=== PATIENT | male | born 1980 | race Caucasian/White ===

== ENCOUNTER 2018-11-18 19:21 | Emergency (ER) | payer OTHER ==
--- NOTE | 2018-11-18 20:42 | ER ---
Nurse's Notes [facility] Name: Peewee Briscoe Age: 38 yrs Sex: Male : 1980 Arrival Date: 11/18/2018 Time: 19:24 Bed 23 [facility] MD: Diagnosis: Contusion of left knee Presentation: 11/18 19:30 Presenting complaint: Patient states: Left knee pain today after pipe fell on knee. aj Transition of care: patient was not received from another setting of care. Onset of symptoms was November 18, 2018. Risk Assessment: Do you want to hurt yourself or someone else? Patient reports no desire to harm self or others. Initial Sepsis Screen: Does the patient meet any 2 criteria? No. Patient's initial sepsis screen is negative. Does the patient have a suspected source of infection? No. Patient's initial sepsis screen is negative. Care prior to arrival: None. 19:30 Method Of Arrival: Ambulatory aj 19:30 Acuity: MARIUSZ 4 aj Triage Assessment: 19:31 General: Appears in no apparent distress. comfortable, Behavior is calm, cooperative, aj appropriate for age. Pain: Complains of pain in left knee. Neuro: Level of Consciousness is awake, alert, obeys commands, Oriented to person, place, time, situation, Appropriate for age. Respiratory: Airway is patent Respiratory effort is even, unlabored, Respiratory pattern is regular, symmetrical. Derm: Skin is intact, is healthy with good turgor, Skin is pink, warm \T\ dry. normal. Musculoskeletal: Reports pain in left knee. Historical: - Allergies: 19:31 Bactrim; aj 19:31 PENICILLINS; aj - Immunization history:: Adult Immunizations up to date. - Social history:: Smoking status: Patient/guardian denies using tobacco. - Ebola Screening: : Patient negative for fever greater than or equal to 101.5 degrees Fahrenheit, and additional compatible Ebola Virus Disease symptoms Patient denies exposure to infectious person Patient denies travel to an Ebola-affected area in the 21 days before illness onset No symptoms or risks identified at this time. Screenin:52 Abuse screen: Denies threats or abuse. Denies injuries from another. Nutritional rv screening: No deficits noted. Tuberculosis screening: No symptoms or risk factors identified. Fall Risk None identified. Assessment: 20:51 General: Appears in no apparent distress. uncomfortable, Behavior is calm, cooperative. rv Pain: Complains of pain in left knee. Neuro: Level of Consciousness is awake, alert, obeys commands, Oriented to person, place, time, situation. Cardiovascular: Patient's skin is warm and dry. Respiratory: Airway is patent. GI: No signs and/or symptoms were reported involving the gastrointestinal system. : No signs and/or symptoms were reported regarding the genitourinary system. EENT: No signs and/or symptoms were reported regarding the EENT system. Derm: Skin is intact. Musculoskeletal: Swelling absent. Vital Signs: 19:31 BP 130 / 83; Pulse 80; Resp 17; Temp 98.1; Pulse Ox 98% on R/A; Weight 73.94 kg; Height aj 6 ft. 0 in. (182.88 cm); 19:31 Body Mass Index 22.11 (73.94 kg, 182.88 cm) aj ED Course: 19:24 Patient arrived in ED. ag3 19:31 Triage completed. aj 19:31 Arm band placed on left wrist. Patient placed in waiting room, Patient notified of wait aj time. 19:54 XRAY Knee LEFT 3 view In Process Unspecified. EDMS 20:29 Mack Mireles MD is Attending Physician. tw4 20:47 Kole Oconnell RN is Primary Nurse. rv 20:53 Patient has correct armband on for positive identification. Bed in low position. Call rv light in reach. Side rails up X 1. Pulse ox on. NIBP on. 20:53 No provider procedures requiring assistance completed. Patient did not have IV access rv during this emergency room visit. Administered Medications: 20:50 Drug: [place] 5 mg-325 mg 1 tabs Route: PO; rv 20:51 Follow up: Response: Medication administered at discharge. rv Outcome: 20:40 Discharge ordered by . tw4 20:53 Discharged to home ambulatory. rv 20:53 Condition: good 20:53 Discharge instructions given to patient, Instructed on discharge instructions, follow up and referral plans. medication usage, Demonstrated understanding of instructions, follow-up care, medications, Prescriptions given X 1. 21:04 Patient left the ED. rv Signatures: Dispatcher [employer] EDMS Alexandra Riley RN RN aj Wadley, Terrence, MD MD tw4 Kole Oconnell, RN RN rv Shimon, Anabella ag3
--- NOTE | 2018-11-18 20:42 | EDPHYS ---
Physician Documentation [facility] Name: Peewee Briscoe Age: 38 yrs Sex: Male : 1980 Arrival Date: 11/18/2018 Time: 19:24 Bed 23 Private MD: ED Physician Mack Mireles HPI: 11/19 06:05 This 38 yrs old Male presents to ER via Ambulatory with complaints of Knee tw4 Injury. 06:05 The patient presents with an injury, pain, that is acute. The complaints affect the tw4 left knee. Context: The problem was sustained at work, resulted from a direct blow, by industrial equipment, the patient can partially bear weight. 06:06 Onset: The symptoms/episode began/occurred today. Modifying factors: The symptoms are tw4 alleviated by remaining still, the symptoms are aggravated by movement, weight bearing, bending knee. Associated signs and symptoms: The patient has no apparent associated signs or symptoms. Severity of symptoms: At their worst the symptoms were moderate, in the emergency department the symptoms are unchanged. Historical: - Allergies: 11/18 19:31 Bactrim; aj 19:31 PENICILLINS; aj - Immunization history:: Adult Immunizations up to date. - Social history:: Smoking status: Patient/guardian denies using tobacco. - Ebola Screening: : Patient negative for fever greater than or equal to 101.5 degrees Fahrenheit, and additional compatible Ebola Virus Disease symptoms Patient denies exposure to infectious person Patient denies travel to an Ebola-affected area in the 21 days before illness onset No symptoms or risks identified at this time. ROS: 11/19 06:06 Constitutional: Negative for fever, chills, and weight loss, Eyes: Negative for injury, tw4 pain, redness, and discharge, Cardiovascular: Negative for chest pain, palpitations, and edema, Respiratory: Negative for shortness of breath, cough, wheezing, and pleuritic chest pain, Abdomen/GI: Negative for abdominal pain, nausea, vomiting, diarrhea, and constipation. MS/extremity: Positive for pain, swelling, tenderness. Exam: 06:06 Constitutional: This is a well developed, well nourished patient who is awake, alert, tw4 and in no acute distress. Head/Face: Normocephalic, atraumatic. Chest/axilla: Normal chest wall appearance and motion. Nontender with no deformity. No lesions are appreciated. Cardiovascular: Regular rate and rhythm with a normal S1 and S2. No gallops, murmurs, or rubs. Normal PMI, no JVD. No pulse deficits. Respiratory: Lungs have equal breath sounds bilaterally, clear to auscultation and percussion. No rales, rhonchi or wheezes noted. No increased work of breathing, no retractions or nasal flaring. Abdomen/GI: Soft, non-tender, with normal bowel sounds. No distension or tympany. No guarding or rebound. No evidence of tenderness throughout. 06:06 Musculoskeletal/extremity: Extremities: 06:08 Musculoskeletal/extremity: Extremities: noted in the left knee: tw4 Vital Signs: 11/18 19:31 BP 130 / 83; Pulse 80; Resp 17; Temp 98.1; Pulse Ox 98% on R/A; Weight 73.94 kg; Height aj 6 ft. 0 in. (182.88 cm); 19:31 Body Mass Index 22.11 (73.94 kg, 182.88 cm) aj Procedures: 11/19 06:08 Splinting: Splint applied to left knee using regina wrap, applied by myself. Examined by tw4 me, post splint application: neurovascular intact, 2+ distal pulses palpable, brisk capillary refill noted, Patient tolerated well. MDM: 11/18 20:39 Patient medically screened. tw4 11/19 06:08 Differential diagnosis: dislocation, closed fracture, contusion, abrasion, tendonitis. tw4 Data reviewed: vital signs, nurses notes. Test interpretation: by ED physician or midlevel provider: plain radiologic studies. Counseling: I had a detailed discussion with the patient and/or guardian regarding: the historical points, exam findings, and any diagnostic results supporting the discharge/admit diagnosis, radiology results. Special discussion: I discussed with the patient/guardian in detail that at this point there is no indication for admission to the hospital. It is understood, however, that if the symptoms persist or worsen the patient needs to return immediately for re-evaluation. ED course: Xrays negative for acute changes. 11/18 19:32 Order name: XRAY Knee LEFT 3 view aj Administered Medications: 11/18 20:50 Drug: [place] 5 mg-325 mg 1 tabs Route: PO; rv 20:51 Follow up: Response: Medication administered at discharge. rv Disposition: 11/18/18 20:40 Discharged to Home. Impression: Contusion of left knee. - Condition is Stable. - Discharge Instructions: Contusion. - Prescriptions for Ibuprofen 800 mg Oral Tablet - take 1 tablet by ORAL route every 8 hours As needed take with food; 30 tablet. - Medication Reconciliation Form, Thank You Letter, Antibiotic Education, Prescription Opioid Use form. - Follow up: Private Physician; When: Upon discharge from the Emergency Department; Reason: If symptoms return, Recheck today's complaints, Continuance of care. - Problem is new. - Symptoms have improved. Signatures: Dispatcher [employer] Alexandra Cheung RN RN Mack Osborn MD MD tw4 Kole Oconnell RN RN rv Corrections: (The following items were deleted from the chart) 21:04 20:40 11/18/2018 20:40 Discharged to Home. Impression: Contusion of left knee. rv Condition is Stable. Forms are Medication Reconciliation Form, Thank You Letter, Antibiotic Education, Prescription Opioid Use. Follow up: Private Physician; When: Upon discharge from the Emergency Department; Reason: If symptoms return, Recheck today's complaints, Continuance of care. Problem is new. Symptoms have improved. tw4
--- NOTE | 2018-11-18 20:44 | RAD REPORT ---
EXAM DESCRIPTION: RAD - Knee Left 3 View - 11/18/2018 7:53 pm CLINICAL HISTORY: Blunt force trauma to the knee COMPARISON: None. FINDINGS: No fracture, dislocation or periosteal reaction.Small joint effusion is suspected. Benign sclerotic focus seen in the medial tibial plateau. No joint space narrowing. No soft tissue abnormali ty. IMPRESSION: Small joint effusion is suspected but no fracture or acute bone finding. Clinical concerns for internal derangement or occult bony injury could be further assessed with MR im aging.
[2018-11-18] MEDS ORDERED: HYDROCODONE/APAP 5/325 MG TAB ONE (21:06)
== END 2018-11-18 21:04 | disposition home or self-care (01) ==
LOC: ER 19:21
DX: S80.02XA Contusion of left knee, initial encounter (principal); W31.89XA Contact with other specified machinery, initial encounter; Y93.9 Activity, unspecified; Y92.89 Other specified places as the place of occurrence of the external cause; Y99.8 Other external cause status; Z88.0 Allergy status to penicillin; Z88.1 Allergy status to other antibiotic agents
CPT/HCPCS: 99284

== ENCOUNTER 2020-01-18 07:16 | Emergency (ER) | payer OTHER ==
--- NOTE | 2020-01-18 07:34 | ER ---
Nurse's Notes [facility] Name: Peewee Briscoe Age: 39 yrs Sex: Male : 1980 Arrival Date: 01/18/2020 Time: 07:18 Bed 18 Private MD: Diagnosis: Hordeolum externum left lower eyelid Presentation: 01/17 07:29 Chief complaint: Patient states: Left lower eyelid swelling since this morning. jl7 Coronavirus screen: Client denies travel out of the [place] in the last 14 days. At this time, the client does not indicate any symptoms associated with coronavirus-19. Ebola Screen: No symptoms or risks identified at this time. Initial Sepsis Screen: Does the patient meet any 2 criteria? No. Patient's initial sepsis screen is negative. Does the patient have a suspected source of infection? No. Patient's initial sepsis screen is negative. Risk Assessment: Do you want to hurt yourself or someone else? Patient reports no desire to harm self or others. Onset of symptoms was January 18, 2020 at 05:00. Care prior to arrival: None. 07:29 Method Of Arrival: Ambulatory [facility] 07:29 Acuity: MARIUSZ 4 jl7 Triage Assessment: 07:31 General: Appears in no apparent distress. uncomfortable, Behavior is calm, cooperative, jl7 appropriate for age. Pain: Complains of pain in left eye Pain currently is 7 out of 10 on a pain scale. EENT: Eyes are tearing on left eye with exudate noted from left eye Lid(s) w/ stye noted left eye. Neuro: Level of Consciousness is awake, alert, obeys commands, Oriented to person, place, time, situation. Cardiovascular: Patient's skin is warm and dry. Respiratory: Airway is patent Respiratory effort is even, unlabored, Respiratory pattern is regular, symmetrical. Derm: Skin is pink, warm \T\ dry. Historical: - Allergies: 07:31 Bactrim; jl7 07:31 PENICILLINS; jl7 - Home Meds: 07:31 None [Active]; jl7 - PMHx: 07:31 None; jl7 - PSHx: 07:31 None; jl7 - Immunization history:: Adult Immunizations up to date. - Social history:: Smoking status: Patient reports the use of cigarette tobacco products, smokes one pack cigarettes per day. - Family history:: not pertinent. - Hospitalizations: : No recent hospitalization is reported. Screenin:32 Abuse screen: Denies threats or abuse. Denies injuries from another. Nutritional jl7 screening: No deficits noted. Tuberculosis screening: No symptoms or risk factors identified. Fall Risk None identified. Assessment: 07:32 General: See triage assessment. jl7 Vital Signs: 07:29 BP 157 / 69; Pulse 72; Resp 17; Temp 98.4; Pulse Ox 100% ; Weight 72.57 kg; Height 6 jl7 ft. 0 in. (182.88 cm); Pain 7/10; 07:29 Body Mass Index 21.70 (72.57 kg, 182.88 cm) jl7 ED Course: 07:18 Patient arrived in ED. ds1 07:21 Malvin Lan MD is Attending Physician. rn 07:22 Lizzeth Clark RN is Primary Nurse. jl7 07:31 Triage completed. jl7 07:31 Arm band placed on right wrist. jl7 07:32 Patient has correct armband on for positive identification. Bed in low position. Call jl7 light in reach. Side rails up X 1. 07:32 No provider procedures requiring assistance completed. Patient did not have IV access jl7 during this emergency room visit. Administered Medications: No medications were administered Outcome: 07:33 Discharge ordered by . rn 07:42 Discharged to home ambulatory. jl7 07:42 Condition: stable 07:42 Discharge instructions given to patient, Instructed on discharge instructions, follow up and referral plans. medication usage, Demonstrated understanding of instructions, follow-up care, medications, Prescriptions given X 1. 07:42 Patient left the ED. jl7 Signatures: Cailin Henry ds1 Malvin Lan MD MD rn Lizzeth Clark RN RN jl7
--- NOTE | 2020-01-18 07:34 | EDPHYS ---
Physician Documentation [facility] Name: Peewee Briscoe Age: 39 yrs Sex: Male : 1980 Arrival Date: 01/18/2020 Time: 07:18 Bed 18 Private MD: ED Physician Malvin Lan HPI: 01/17 07:30 This 39 yrs old Male presents to ER via Unassigned with complaints of Eye rn Swelling. 07:30 The patient is experiencing pain, The patient sustained None. to the left eye, caused rn by an unknown mechanism. Onset: The symptoms/episode began/occurred yesterday. Duration: the symptoms are continuous. Aggravated by rubbing. Severity of symptoms: At their worst the symptoms were very mild in the emergency department the symptoms are unchanged. The patient has not experienced similar symptoms in the past. Reports left lower eyelid swelling and pain, + watery drainage, no fever, no trauma, no chemical exposure. Does not wear contacts. No vision changes. . Historical: - Allergies: 07:31 Bactrim; jl7 07:31 PENICILLINS; jl7 - Home Meds: 07:31 None [Active]; jl7 - PMHx: 07:31 None; jl7 - PSHx: 07:31 None; jl7 - Immunization history:: Adult Immunizations up to date. - Social history:: Smoking status: Patient reports the use of cigarette tobacco products, smokes one pack cigarettes per day. - Family history:: not pertinent. - Hospitalizations: : No recent hospitalization is reported. ROS: 07:30 Constitutional: Negative for fever, chills, and weight loss, Eyes: + left lower eyelid rn swelling and pain ENT: Negative for injury, pain, and discharge, Neuro: Negative for headache, weakness, numbness, tingling, and seizure. Exam: 07:30 Constitutional: This is a well developed, well nourished patient who is awake, alert, rn and in no acute distress. Head/Face: Normocephalic, atraumatic. Eyes: Pupils equal round and reactive to light, extra-ocular motions intact. Conjunctiva and sclera are non-icteric and not injected. Cornea within normal limits. + left lower inner eyelid margin with mild swelling and tenderness, + comes to a head, mild left infra-orbital swelling without erythema or warmth. Vital Signs: 07:29 BP 157 / 69; Pulse 72; Resp 17; Temp 98.4; Pulse Ox 100% ; Weight 72.57 kg; Height 6 jl7 ft. 0 in. (182.88 cm); Pain 7/10; 07:29 Body Mass Index 21.70 (72.57 kg, 182.88 cm) jl7 MDM: 07:21 Patient medically screened. rn 07:30 Differential diagnosis: hordeolum/stye. Data reviewed: vital signs, nurses notes, and rn as a result, I will discharge patient. Counseling: I had a detailed discussion with the patient and/or guardian regarding: the historical points, exam findings, and any diagnostic results supporting the discharge/admit diagnosis, the need for outpatient follow up, to return to the emergency department if symptoms worsen or persist or if there are any questions or concerns that arise at home. Special discussion: I discussed with the patient/guardian in detail that at this point there is no indication for admission to the hospital. It is understood, however, that if the symptoms persist or worsen the patient needs to return immediately for re-evaluation. ED course: Recommend lid washing/eye washing, abx ointment, warm compresses. Administered Medications: No medications were administered Disposition: 01/18/20 07:33 Discharged to Home. Impression: Hordeolum externum left lower eyelid. - Condition is Stable. - Discharge Instructions: Stye. - Prescriptions for Erythromycin 5 mg/gram (0.5 %) Ophthalmic Ointment - apply 1 centimeter by OPHTHALMIC route 2-3 times daily for 7 days; 1 tube. - Medication Reconciliation Form, Thank You Letter, Antibiotic Education, Prescription Opioid Use, Work release form form. - Follow up: Private Physician; When: As needed; Reason: Recheck today's complaints, Re-evaluation by your physician. - Problem is new. - Symptoms are unchanged. Signatures: Malvin Lan MD MD rn Leal, Jahala, RN RN jl7 Corrections: (The following items were deleted from the chart) 07:42 07:33 01/18/2020 07:33 Discharged to Home. Impression: Hordeolum externum left lower jl7 eyelid. Condition is Stable. Forms are Medication Reconciliation Form, Thank You Letter, Antibiotic Education, Prescription Opioid Use. Follow up: Private Physician; When: As needed; Reason: Recheck today's complaints, Re-evaluation by your physician. Problem is new. Symptoms are unchanged. rn
[2020-01-18 07:48] VITALS: BP 157/69; TEMP 98.4; O2SAT 100
== END 2020-01-18 07:42 | disposition home or self-care (01) ==
LOC: ER 07:16
DX: H00.015 Hordeolum externum left lower eyelid (principal); Z88.0 Allergy status to penicillin; Z88.1 Allergy status to other antibiotic agents; F17.210 Nicotine dependence, cigarettes, uncomplicated
CPT/HCPCS: 99282